=== PATIENT | female | born 1980 | race Hispanic/Latino ===

== ENCOUNTER 2019-07-15 07:58 | Day surgery (SDC) | payer BC ==
[2019-07-15] MEDS ORDERED: ONDANSETRON 4 MG/2 ML INJ IV PRN (08:28)
[2019-07-15] MEDS ORDERED: fentaNYL 100 MCG/2 ML INJ IV PRN (08:28)
--- NOTE | 2019-07-15 08:29 | Anesthesia Day of Surgery ---
Anesthesia Day of Surgery - Day of Surgery Patient Examined: Yes Patient H&P Reviewed: Yes Patient is NPO: Yes
--- NOTE | 2019-07-15 08:32 | Anesthesia Consultation ---
Anesthesia Consult and Med Hx Date of service: 07/15/19 - Airway Anesthetic Teeth Evaluation: Good ROM Head & Neck: Adequate Mental/Hyoid Distance: Adequate Mallampati Class: Class II Intubation Access Assessment: Good - Pre-Operative Health Status ASA Pre-Surgery Classification: ASA2 Proposed Anesthetic Plan: General - Pulmonary Hx Smoking: No Hx Sleep Apnea: No (AMALIA PRE SCREEN NEGATIVE) - Cardiovascular System Hx Hypertension: No - Central Nervous System Hx Neuromuscular Disorder: Yes (Migraines) Hx Psychiatric Problems: No - Gastrointestinal Hx Gastroesophageal Reflux Disease: Yes (occasional dietary) - Hematic Hx Anemia: No - Other Systems Hx Alcohol Use: No Hx Substance Use: No Hx Cancer: No - Additional Comments Anesthesia Medical History Comments: HSV
[2019-07-15] MEDS: MIDAZOLAM 2 MG/2 ML INJ IV SCH ×2 (08:55→10:48)
[2019-07-15] MEDS ORDERED: FAMOTIDINE 20 MG/2 ML INJ IV SCH (09:00)
[2019-07-15] MEDS ORDERED: FAMOTIDINE 20 MG/2 ML INJ IV ONE (09:00)
[2019-07-15] MEDS ORDERED: LACTATED RINGERS 1,000 ML IV SCH (09:00)
[2019-07-15] MEDS ORDERED: MIDAZOLAM 2 MG/2 ML INJ ONE (09:00)
[2019-07-15] MEDS ORDERED: ceFAZolin/STERILE WATER 2 GM/20 ML SYRINGE IV NR (10:00)
[2019-07-15] MEDS ORDERED: fentaNYL 100 MCG/2 ML INJ IV SCH (11:41)
--- NOTE | 2019-07-15 12:37 | Short Stay Summary ---
Short Stay Documentation Date of service: 07/15/19 - History H&P: obtained from office - Allergies and Medications Current Medications: Allergies No Known Allergies Allergy (Unverified 07/05/19 12:23) Home Medications Medication Instructions Recorded Confirmed Last Taken Type Acetaminophen with Codeine 1 tab PO PRN PRN 07/05/19 07/05/19 Unknown History Amitriptyline 75 mg PO HS 07/05/19 07/05/19 07/14/19 History Eszopiclone 2 tab PO HS 07/05/19 07/05/19 07/14/19 History HCTZ 25 mg PO DAILY 07/05/19 07/15/19 07/14/19 History Imitrex 100 mg PO PRN PRN 07/05/19 07/05/19 Unknown History Ondansetron TAB 4 mg PO PRN PRN 07/05/19 07/05/19 Unknown History Tamsulosin 0.4 cap PO DAILY 07/05/19 07/05/19 07/14/19 History oxyCODONE /ACETAMINOPHEN 5 mg PO PRN PRN 07/05/19 07/05/19 07/14/19 History valACYclovir 500 mg PO BID 07/05/19 07/15/19 2 Years Ago History ~07/15/17 Active Medications Cefazolin Sodium (Ancef/Sterile Water 2 Gm/20 Ml) 2 gm IV PREOP NR Stop: 07/15/19 13:00 Famotidine (Pepcid) 20 mg IV PREOP LACIE Stop: 07/15/19 23:59 Last Admin: 07/15/19 09:00 Dose: 20 mg Documented by: Fentanyl (Sublimaze) 50 mcg IV Q5MIN PRN PRN Reason: Pain , Severe (7-10) Stop: 07/15/19 20:00 Fentanyl (Sublimaze) 100 mcg IV ONCE LACIE Stop: 07/15/19 23:59 Last Admin: 07/15/19 11:48 Dose: 100 mcg Documented by: Lactated Ringer's (Lactated Ringers) 1,000 mls @ 125 mls/hr IV DIRECT LACIE Last Admin: 07/15/19 08:50 Dose: 125 mls/hr Documented by: Midazolam HCl (Versed) 2 mg IV ONCE LACIE Stop: 07/15/19 23:59 Last Admin: 07/15/19 10:48 Dose: 2 mg Documented by: - Brief post op/procedure progress note Date of procedure: 07/15/19 Pre-op diagnosis: UVJ stone 4mm Post-op diagnosis: same Procedure: cysto brpg, left rigid and flexible urs left stent placement 6x24 Anesthesia: GETA Findings: mild left uret dil, no stone Surgeon: RORO NICHOLE Estimated blood loss: minimal Pathology: none Condition: stable - Hospital course Hospital course: or pacu home - Disposition Condition at discharge: Good Disposition: DC-01 TO HOME OR SELFCARE Short Stay Discharge Plan Activity: advance as tolerated Diet: advance as tolerated Follow up with: RORO NICHOLE MD [Staff Physician] - 10 Days
[2019-07-15] MEDS ORDERED: dexAMETHasone 20 MG/5 ML VIAL ONE (13:00)
[2019-07-15] MEDS ORDERED: LIDOCAINE MPF (2%) 20 MG/1 ML VIAL 5 ML ONE (13:08)
[2019-07-15] MEDS ORDERED: fentaNYL 100 MCG/2 ML INJ ONE (13:09)
[2019-07-15] MEDS ORDERED: PROPOFOL 200 MG/20 ML VIAL IV ONE (13:09)
[2019-07-15] MEDS ORDERED: WATER FOR IRRIG STERILE 2000 ML IR ONE (13:26)
[2019-07-15] MEDS ORDERED: IOHEXOL 300 MG/ML 50ML IV ONE ×2 (13:41)
[2019-07-15] MEDS ORDERED: HYDROcodone/ACETAMINOPHEN 5-325 MG TAB PO PRN ×2 (14:38→14:44)
--- NOTE | 2019-07-15 14:45 | Fluoroscopy Report ---
FLUOROSCOPY RETROGRADE UROGRAPHY HISTORY: Left hydronephrosis FINDINGS: 2.4 minutes of fluoroscopy time was provided by radiology during retrograde urography by nazario clay urologist. 17 fluoroscopic images are presented. The images demonstrate no evidence for filling def ect or abnormal dilatation bilaterally. Left ureteroscopy was performed. A left ureteral stent was pl aced with good drainage of the left collecting system on the final image. Please correlate with the p rocedural report by Dr. Gaona as needed. Signer Name: Eliseo Dee Jr, MD Signed: 07/15/2019 2:40 PM Workstation Name: [id number]
--- NOTE | 2019-07-15 18:08 | Post Anesthesia Evaluation ---
- Post Anesthesia Evaluation Patient Participated: Yes Airway Patent: Yes Stable Respiratory Function: Yes Nausea/Vomiting: No Temp > 96.8F: Yes Pain Manageable: Yes Adequeate Hydration: Yes Anesthesia Complications: No
[2019-07-15 20:46] VITALS: BP 151/78
--- NOTE | 2019-07-18 12:18 | Operative Report ---
PREOPERATIVE DIAGNOSIS: Left ureterovesical junction 4 mm stone. POSTOPERATIVE DIAGNOSIS: Left ureterovesical junction 4 mm stone. PROCEDURE: Cystoscopy, bilateral RPG, left rigid and flexible ureteroscopy, left stent placement with 6 x 24 double-J stent. SURGEON: Rashawn Gaona MD ANESTHESIA: General. SPECIMENS: None. ESTIMATED BLOOD LOSS: None. FINDINGS: No upper pole, lower pole, renal pelvis, caliceal, proximal ureter or distal ureteral stones, distal ureteral edema, possible passed stone. CLINICAL INDICATIONS: The patient was counseled on RCBA, antibiotics, SCDs. The patient had noted that her initial episode she had some pain with her initial stone episode and was feeling better. In the last few days, she has been having mild pain on the left side, was counseled on options and desired to proceed. Antibiotics, SCDs. DESCRIPTION OF PROCEDURE: The patient was transferred to OR suite in supine position, anesthesia, dorsal lithotomy, prepped and draped in standard fashion. A 22-Russian scope passed. Pancystoscopy 30 and 70 degree lens was performed. No tumors, lesions or other abnormality. Right retrograde pyelogram demonstrated normal right distal ureter, proximal ureter, renal pelvis, calyces, no filling defects or hydro. This was repeated on the left side with some mild hydroureter. A 0.035 Glidewire was passed up the ureter into the renal pelvis. Next, a rigid ureteroscope was then easily passed up the ureter. There was some possible mild edema at the UVJ. Proximal to this, the scope was passed up to the proximal ureter and no significant stone was identified. This was slowly withdrawn and once again, no stone was identified in the distal ureter or UPJ. Next, a second wire had been passed up to the renal pelvis. A flexible ureteroscope was passed. This was passed up the distal ureter, proximal ureter, renal pelvis. We inspected and contrast was injected to confirm position and areas to visualize, inspected upper and lower pole and all calices and renal pelvis, no stone identified, slowly withdrawn with no residual stone identified within the ureter. At this point, the wire was backloaded on the cystoscope. A 6-Russian double-J stent was passed over the wire under direct and fluoroscopic visualization. When the wire and string was removed, there was nice proximal J, nice distal J within the bladder. Bladder was drained. The patient was awakened. Prior to this, exam under anesthesia demonstrated no palpable urethral masses. The patient was awakened and transferred to PACU in good and stable condition. PLAN: Staged for future stent removal. JOB# [id number] ATS/NTS
== END 2019-07-15 07:59 | disposition home or self-care (01) ==
LOC: OR 07:58
PROVIDERS: ATTEND Urology
DX: N13.2 Hydronephrosis with renal and ureteral calculous obstruction (principal); I10 Essential (primary) hypertension; G43.909 Migraine, unspecified, not intractable, without status migrainosus; K21.9 Gastro-esophageal reflux disease without esophagitis; Z71.3 Dietary counseling and surveillance; Z87.440 Personal history of urinary (tract) infections; Z79.899 Other long term (current) drug therapy; Z90.49 Acquired absence of other specified parts of digestive tract; Z90.710 Acquired absence of both cervix and uterus; Z98.890 Other specified postprocedural states
CPT/HCPCS: 36415; 52332; 74420; 84132; A4217; C1758; C1769; C2617; J0690; J1100; J2250; J2405; J2704; J3010; J7120; Q9967